=== PATIENT | male | born 1970 | race Caucasian/White ===

== ENCOUNTER 2016-08-02 13:19 | Emergency (ER) | payer SELFPAY ==
[~2016-08-02 13:19] MED LIST: ADVIL PO; PRILO PO; PROAIR HFA INH; TUMSROLL PO; ZANTAC 75 PO
[2016-08-02] MEDS ORDERED: DIAM250B PO (13:33)
[2016-08-02] MEDS ORDERED: PRIN10 PO (13:33)
[2016-08-02] MEDS ORDERED: SPIRIVA INH (13:34)
[2016-08-02] MEDS ORDERED: TOPXL25 PO (13:34)
[2016-08-02] MEDS ORDERED: T PO (13:34)
[2016-08-02] MEDS ORDERED: OTC REFLUX MED PO (13:34)
[2016-08-02] MEDS ORDERED: SYMBICORT 160/41 INH INH (13:35)
[2016-08-02] MEDS ORDERED: PROVHFA PO (13:35)
[2016-08-02] MEDS ORDERED: GLUCPH PO (14:01)
[2016-08-02 14:02] LABS: BASOPHILS 0.2 %; BASOPHILS ABSOLUTE 0.02 10/3/uL (0.0-0.16); EOSINOPHILS 3.2 %; EOSINOPHILS ABSOLUTE 0.31 10/3/uL (0.0-0.53); HEMATOCRIT 46.1 % (40.0-51.0); HEMOGLOBIN 14.5 g/dL (13.6-17.8); IMMATURE GRANULOCYTES 0.4 %; IMMATURE GRANULOCYTES ABSOLUTE 0.04 10/3/uL (0.0-0.11); LYMPHOCYTES 17.3 %; LYMPHOCYTES ABSOLUTE 1.67 10/3/uL (0.67-4.30); MEAN CORPUS HGB CONC 31.5 g/dL (32.0-36.0); MEAN CORPUSCULAR HEMOGLOB 26.7 pg (26.0-34.0); MONOCYTES 8.9 %; MONOCYTES ABSOLUTE 0.86 10/3/uL (0.21-1.20); NEUTROPHILS ABSOLUTE 6.76 10/3/uL (2.02-8.40); PLATELET COUNT 246 10/3/uL (150-400); RBC DISTRIBUTION WIDTH 15.1 % (12.0-16.0); RED CELL COUNT 5.44 10/6/uL (4.7-6.1); WHITE BLOOD CELLS 9.7 10/3/uL (4.5-10.5)
[2016-08-02 14:04] LABS: MANUAL DIFF NO %; MEAN CORPUSCULAR VOLUME 84.7 fL (80-100)
[2016-08-02 14:10] LABS: PARTIAL THROMBO TIME 30.8 SEC (22.5-37.2); PROTIME (NOT ORD) 12.9 SEC (12.0-14.5)
[2016-08-02 14:19] LABS: BUN (BLOOD UREA NITROGEN) 14 MG/DL (6-23); CALCIUM, SERUM 9.1 MG/DL (8.5-10.4); CHEST PAIN PROFILE TAT 0 Hrs 23 Mins; CHLORIDE, SERUM 107 MMOL/L (96-112); CO2 (CARBON DIOXIDE) 30 MMOL/L (24-34); CREATININE 0.86 MG/DL (0.70-1.30); GFR AFRICAN AMERICAN 122 ML/MIN (>=60); GFR NON AFRICAN AMERICAN 105 ML/MIN (>=60); GLUCOSE, SERUM 134 MG/DL (60-99); POTASSIUM, SERUM 4.1 MMOL/L (3.5-5.3); SODIUM, SERUM 143 MMOL/L (135-148); TROPONIN I <0.02 NG/ML (<0.05)
[2016-09-02] MEDS ORDERED: PRINZIDE1 TA1 PO (17:15)
[2016-09-02] MEDS ORDERED: LOP50 PO (17:17)
[2016-09-02] MEDS ORDERED: PROTONIX PO (17:26)
== END 2016-08-02 19:06 | disposition home or self-care (01) ==
LOC: ER 13:19
PROVIDERS: Emergency Medicine
PROC: 2Y41X5Z Packing of Nasal Region using Packing Material (ICD-10-PCS; principal; 2016-08-02)
DX: R04.0 Epistaxis (principal); I10 Essential (primary) hypertension; J44.9 Chronic obstructive pulmonary disease, unspecified; E11.9 Type 2 diabetes mellitus without complications; Z79.899 Other long term (current) drug therapy
CPT/HCPCS: 71010; 80048; 83735; 83880; 84484; 85025; 85610; 85730; 96374; 96375; 96376; 99285; A9270-GY; J2405

== ENCOUNTER 2016-09-03 17:08 | Day surgery (SDC) | payer SELFPAY ==
--- NOTE | ~2016-09-03 | OP ---
Record Of Operation [facility] [address] [place]. [address] NAME: ZOYA GARCIA : 72 STATUS : [place] [facility] [place] PAT#: [id number] AGE: 45 ADM/REG DATE : 09/03/16 MR#: [id number] REPORT SERV DATE: 09/03/16 DICTATED BY: JASMINA YUSUF DATE: 09/03/16 REPORT STATUS : Draft TRANSCRIBED BY: MODL DATE: 09/03/16 DATE OF PROCEDURE: 09/03/2016 PULMONARY BRONCHOSCOPY PROCEDURE: Bronchoscopy with bronchoalveolar lavage, airway inspection, endobronchial ultrasound with transbronchial needle aspiration. PREOPERATIVE DIAGNOSES: Chronic obstructive pulmonary disease, bronchial wall thickening, chronic bronchitis versus nontuberculous mycobacterial rule out, and mediastinal adenopathy. POSTOPERATIVE DIAGNOSES: Chronic obstructive pulmonary disease, bronchial wall thickening, chronic bronchitis versus nontuberculous mycobacterial rule out, and mediastinal adenopathy with the addition of excessive dynamic airway collapse. INDICATION FOR PROCEDURE: This is a hypercapnic patient with underlying COPD, who has airway thickening and a cavitary small lesion in the right lower lobe. Concern exists for nontuberculous mycobacterial disease versus chronic bronchitis. Hence, the need for bronchoalveolar lavage. Also, the patient has mediastinal adenopathy, unclear whether this is reactive or other disease process. Discussed endobronchial ultrasound and transbronchial needle aspiration via EBUS. PROCEDURE NOTE: The patient was brought to the bronchoscopy suite, anesthesia provided the sedation underneath general anesthesia, and the patient had an LMA inserted. Bronchoscope was inserted through the LMA, lidocaine was instilled within the larynx and vocal cords along the trachea. Once we had good anesthetic control, the patient was noted immediately to have significant sputum in the airway. This was suctioned and the patient had excessive dynamic airway collapse. We then continued to suction the white thick secretions that were noted bilaterally. They were tenacious. We then conducted an airway examination, which showed airway inflammation and edema throughout both lungs. We conducted a bronchoalveolar lavage of the right lower lobe. Instilled three aliquots of 60 mL syringes into the right lower lobe and had return of 60 mL. We then switched to endobronchial ultrasound. We conducted then mediastinal airway lymph node examination. The lymph node 4R, station 7, and 11R was noted. Attempted biopsy of ATS station 4R and had one slide. We then had three passes into ATS station 7 through transbronchial needle aspiration. We then evaluated the 11R, however, this is felt to be small and not amenable for need to biopsy. At the end of the procedure, we switched back to the regular bronchoscope, cleared all remaining secretions, had good hemostasis control. We then completed the procedure. PLAN: Follow up bronchioalveolar lavage and cytopathological studies. The patient, , and daughter were notified of the right lower lobe cavitary lesion. We shall have nontuberculous mycobacterial cultures finalized in 6 to 8 weeks. The patient does need to have a repeat CT scan in December 2016, for the right lower lobe abnormality. Record Of [address] [address] NAME: ZOYA GARCIA : 72 STATUS : [place] [facility] [place] PAT#: [id number] AGE: 45 ADM/REG DATE : 09/03/16 MR#: [id number] REPORT SERV DATE: 09/03/16 DICTATED BY: JASMINA YUSUF DATE: 09/03/16 REPORT STATUS : Draft TRANSCRIBED BY: MUSTAPHA DATE: 09/03/16 Q/MUSTAPHA Jasmina Yusuf MD / [id number] CC: MD BEVERLY Newman PATRICIA L
[2016-09-03 11:19] LABS: BASOPHILS 0.3 %; BASOPHILS ABSOLUTE 0.03 10/3/uL (0.0-0.16); EOSINOPHILS 5.1 %; EOSINOPHILS ABSOLUTE 0.51 10/3/uL (0.0-0.53); HEMOGLOBIN 14.6 g/dL (13.6-17.8); IMMATURE GRANULOCYTES 0.4 %; IMMATURE GRANULOCYTES ABSOLUTE 0.04 10/3/uL (0.0-0.11); LYMPHOCYTES 25.5 %; LYMPHOCYTES ABSOLUTE 2.57 10/3/uL (0.67-4.30); MEAN CORPUS HGB CONC 31.1 g/dL (32.0-36.0); MEAN CORPUSCULAR HEMOGLOB 27.9 pg (26.0-34.0); MEAN CORPUSCULAR VOLUME 89.7 fL (80-100); MEAN PLATELET VOLUME 9.5 fL (9.2-13.0); MONOCYTES 6.5 %; MONOCYTES ABSOLUTE 0.66 10/3/uL (0.21-1.20); NEUTROPHILS 62.2 %; NEUTROPHILS ABSOLUTE 6.28 10/3/uL (2.02-8.40); PLATELET COUNT 253 10/3/uL (150-400); RBC DISTRIBUTION WIDTH 17.5 % (12.0-16.0); RED CELL COUNT 5.24 10/6/uL (4.7-6.1); WHITE BLOOD CELLS 10.1 10/3/uL (4.5-10.5)
[2016-09-03 11:20] LABS: MANUAL DIFF NO %
[2016-09-03 11:31] LABS: BUN (BLOOD UREA NITROGEN) 19 MG/DL (6-23); CALCIUM, SERUM 8.9 MG/DL (8.5-10.4); CHLORIDE, SERUM 102 MMOL/L (96-112); CO2 (CARBON DIOXIDE) 37 MMOL/L (24-34); CREATININE 0.99 MG/DL (0.70-1.30); GFR AFRICAN AMERICAN 107 ML/MIN (>=60); GFR NON AFRICAN AMERICAN 92 ML/MIN (>=60); GLUCOSE, SERUM 94 MG/DL (60-99); POTASSIUM, SERUM 3.9 MMOL/L (3.5-5.3); SODIUM, SERUM 144 MMOL/L (135-148)
[2016-09-03 11:51] LABS: INTERNATIONAL NORMAL RATI 0.9 UNITS (-); PARTIAL THROMBO TIME 30.9 SEC (22.5-37.2); PROTIME (NOT ORD) 12.4 SEC (12.0-14.5)
[2016-09-03 16:35] LABS: BD FL LYMPH (NOT ORD) 0 %; BF BASO (NOT OF) 0 %; BF LARGE MONONUCLEAR 1 %; BODY FLUID EOS (NOT ORD) 0 %; BODY FLUID SEG (NOT ORD) 99 %
[2016-09-03 16:36] LABS: BD FL SOURCE (NOT ORD) BAL--RLL; BF TOTAL CELL CT (NOT ORD 1918 /MM3; BODY FLUID RBC (NOT ORD) < 1000 /MM3
[~2016-09-03 17:08] MED LIST changes: +DIAM250B PO; +GLUCPH PO; +LOP50 PO; +OTC REFLUX MED PO; +PRIN10 PO; +PRINZIDE1 TA1 PO; +PROTONIX PO; +PROVHFA PO; +SPIRIVA INH; +SYMBICORT 160/41 INH INH; +T PO; +TOPXL25 PO
== END 2016-09-03 23:59 | disposition home or self-care (01) ==
LOC: DMU 17:08
PROVIDERS: Internal Medicine Critical Care Medicine
PROC: 07B74ZX Excision of Thorax Lymphatic, Percutaneous Endoscopic Approach, Diagnostic (ICD-10-PCS; principal; 2016-09-03 13:00)
PROC: 0B9F8ZX Drainage of Right Lower Lung Lobe, Via Natural or Artificial Opening Endoscopic, Diagnostic (ICD-10-PCS; 2016-09-03 13:00)
PROC: 07B74ZX Excision of Thorax Lymphatic, Percutaneous Endoscopic Approach, Diagnostic (ICD-10-PCS; 2016-09-03 13:00)
DX: J18.9 Pneumonia, unspecified organism (principal); J44.9 Chronic obstructive pulmonary disease, unspecified; R59.0 Localized enlarged lymph nodes; I11.0 Hypertensive heart disease with heart failure; I50.9 Heart failure, unspecified; K21.9 Gastro-esophageal reflux disease without esophagitis; E78.2 Mixed hyperlipidemia; E78.00 Pure hypercholesterolemia, unspecified; E11.65 Type 2 diabetes mellitus with hyperglycemia; E66.9 Obesity, unspecified; F17.210 Nicotine dependence, cigarettes, uncomplicated; J45.909 Unspecified asthma, uncomplicated; Z98.890 Other specified postprocedural states
CPT/HCPCS: 80048; 82962; 85025; 85610; 85730; 87015; 87070; 87102; 87116; 87205; 88112; 88172; 88173; 88305; 88312; 89051; 93005; A9270-GY; C1725; J2250; J2405; J3010